=== PATIENT | female | born 1960 | race African-American/Black ===

== ENCOUNTER 2019-02-02 07:23 | Emergency (ER) | payer BC ==
[~2019-02-02] VITALS: Ht 167.6 cm; Wt 100.0 kg
[2019-02-02] MEDS ORDERED: SEMA1PEN SQ (07:34)
[2019-02-02] MEDS ORDERED: PERPHENAZINE PO (07:39)
[2019-02-02] MEDS ORDERED: CHOL50004 PO (07:39)
[2019-02-02] MEDS ORDERED: HYDR25TA PO (07:39)
[2019-02-02] MEDS ORDERED: PRAV40TA4 PO (07:39)
[2019-02-02] MEDS ORDERED: RIVA20TA PO (07:39)
[2019-02-02] MEDS ORDERED: AMLO5TAB9 PO (07:39)
[2019-02-02 07:41] LABS: GLUCOSE,POINT OF CARE 142 MG/DL (70-110)
[2019-02-02 09:45] VITALS: BP 117/73
== END 2019-02-02 10:04 | disposition home or self-care (01) ==
LOC: EMS 07:25
DX: M79.605 Pain in left leg (principal); E11.9 Type 2 diabetes mellitus without complications; E78.00 Pure hypercholesterolemia, unspecified; I10 Essential (primary) hypertension; Z90.710 Acquired absence of both cervix and uterus
CPT/HCPCS: 93971